=== PATIENT | female | born 1960 | race Caucasian/White ===

== ENCOUNTER 2023-12-29 06:29 | Day surgery (SDC) | payer BC, SELFPAY ==
[2023-12-29 12:15] VITALS: BP 134/80
[2023-12-29 12:24] VITALS: BMI 22.4
[2023-12-29 14:07] VITALS: BP 128/90
[2023-12-29 14:10] VITALS: BP 128/90
[2023-12-29 14:15] VITALS: BP 139/82
[2023-12-29 14:30] VITALS: BP 132/82
[2023-12-29 14:45] VITALS: BP 135/87
== END 2023-12-29 15:12 | disposition home or self-care (01) ==
LOC: SDS 06:29
PROVIDERS: ATTENDING PHYSICIAN Internal Medicine Gastroenterology
DX: K83.8 Other specified diseases of biliary tract (principal); K86.89 Other specified diseases of pancreas; K29.70 Gastritis, unspecified, without bleeding; K31.89 Other diseases of stomach and duodenum
CPT/HCPCS: 43242; 43239; 88305; 88342

== ENCOUNTER 2024-01-14 10:23 | Outpatient (RCR) | payer BC, SELFPAY ==
[2023-12-31] VITALS (9 sets, daily range): BP systolic 98–125; BP diastolic 65–89
[2023-12-31 11:36] LABS: % Basophils 1.4 % (0-2); % Eosinophils 6.4 % (0-6); % Immature Granulocytes 0.2 % (0-0.5); % Lymphocytes 26.8 % (20.5-51.1); % Monocytes 8.6 % (1.7-9.3); % Neutrophils 56.6 % (42.2-75.2); Absolute Basophils 0.1 10^3/uL (0-0.2); Absolute Eosinophils 0.4 10^3/uL (0-0.7); Absolute Lymphocytes 1.6 10^3/uL (1.2-3.4); Absolute Monocytes 0.5 10^3/uL (0.1-0.6); Absolute Neutrophils 3.3 10^3/uL (1.4-6.5); Hematocrit 40.3 % (37.0-47.0); Hemoglobin 13.4 g/dL (12.0-16.0); Mean Corp Hgb Conc. 33.3 g/dL (33.0-37.0); Mean Corpuscular Hgb 30.2 pg (27.0-31.0); Mean Platelet Volume 8.4 fL (7.4-10.4); Platelet Count 308 10^3/uL (130-400); Red Blood Cell Count 4.43 10^6/uL (4.20-5.40); Red Cell Dist. Width 13.6 % (11.5-14.5); White Blood Cell Count 5.9 10^3/uL (4.8-10.8)
[2023-12-31] MEDS: NSS 250 IV (11:41)
[2023-12-31] MEDS: SOLU-CORTEF 100 MG IV (11:42)
[2023-12-31] MEDS: RITUXAN 250 MG IV (11:43)
[2023-12-31 12:24] LABS: ALT (SGPT) 26 U/L (0-35); AST (SGOT) 29 U/L (14-36); Albumin 4.7 g/dl (3.5-5.0); Alkaline Phosphatase 71 U/L (38-126); Blood Urea Nitrogen 13 mg/dl (7-17); Calcium 9.9 mg/dl (8.4-10.2); Carbon Dioxide 27 mmol/L (22-30); Chloride 106 mmol/L (98-107); Glucose 77 mg/dl (70-99); Potassium 4.4 mmol/L (3.5-5.1); Sodium 139 mmol/L (135-145); Total Bilirubin 0.4 mg/dl (0.2-1.3); Total Protein 6.9 g/dl (6.3-8.2); eGFR > 60.00
[2023-12-31 12:26] LABS: C-Reactive Protein < 5.00 mg/L (0.0-10.00)
[2024-01-14] VITALS (9 sets, daily range): BP systolic 126–151; BP diastolic 75–93
[2024-01-14] MEDS: NSS 250 IV (10:55)
[2024-01-14] MEDS: RITUXAN 250 MG IV (10:55)
== END 2024-01-14 14:57 | disposition home or self-care (01) ==
LOC: OID 10:23
PROVIDERS: ATTENDING PHYSICIAN Internal Medicine Rheumatology; FAMILY PHYSICIAN Family Medicine
DX: R06.9 Unspecified abnormalities of breathing (principal); M06.9 Rheumatoid arthritis, unspecified (principal)
CPT/HCPCS: 36415; 80053; 85025; 86140; 96375; 96413; 96415; J9312

== ENCOUNTER 2024-04-14 09:46 | Outpatient (RCR) | payer BC, SELFPAY ==
[2024-03-31] VITALS (11 sets, daily range): BP systolic 110–121; BP diastolic 61–73
[2024-03-31] MEDS: NSS 250 IV (11:14)
[2024-03-31] MEDS: SOLU-CORTEF 100 MG IV (11:14)
[2024-03-31] MEDS: RITUXAN 250 MG IV (11:15)
[2024-04-14] VITALS (9 sets, daily range): BP systolic 115–134; BP diastolic 70–99
[2024-04-14] MEDS: SOLU-CORTEF 100 MG IV (10:24)
[2024-04-14] MEDS: NSS 250 IV (10:24)
[2024-04-14] MEDS: RITUXAN 250 MG IV (10:25)
== END 2024-04-15 09:06 | disposition home or self-care (01) ==
LOC: OID 09:46
PROVIDERS: ATTENDING PHYSICIAN Internal Medicine Rheumatology; PRIMARYCARE PHYSICIAN Family Medicine
DX: M06.9 Rheumatoid arthritis, unspecified (principal)
CPT/HCPCS: 96375; 96413; 96415; J9312

== ENCOUNTER 2024-07-14 09:48 | Outpatient (RCR) | payer BC, SELFPAY ==
[2024-07-14] VITALS (8 sets, daily range): BP systolic 104–131; BP diastolic 60–75; BMI 22.5
[2024-07-14 10:30] LABS: % Basophils 0.9 % (0-2); % Eosinophils 3.4 % (0-6); % Immature Granulocytes 0.1 % (0-0.5); % Lymphocytes 18.4 % (20.5-51.1); % Monocytes 8.4 % (1.7-9.3); % Neutrophils 68.8 % (42.2-75.2); Absolute Basophils 0.1 10^3/uL (0-0.2); Absolute Eosinophils 0.3 10^3/uL (0-0.7); Absolute Lymphocytes 1.4 10^3/uL (1.2-3.4); Absolute Monocytes 0.6 10^3/uL (0.1-0.6); Absolute Neutrophils 5.1 10^3/uL (1.4-6.5); Hematocrit 34.9 % (37.0-47.0); Hemoglobin 11.3 g/dL (12.0-16.0); Mean Corp Hgb Conc. 32.4 g/dL (33.0-37.0); Mean Corpuscular Hgb 30.3 pg (27.0-31.0); Mean Corpuscular Volume 93.6 fL (81.0-99.0); Mean Platelet Volume 8.1 fL (7.4-10.4); Platelet Count 422 10^3/uL (130-400); Red Blood Cell Count 3.73 10^6/uL (4.20-5.40); Red Cell Dist. Width 13.2 % (11.5-14.5); White Blood Cell Count 7.5 10^3/uL (4.8-10.8)
[2024-07-14] MEDS: NSS 250 IV (10:40)
[2024-07-14] MEDS: SOLU-CORTEF 100 MG IV (10:41)
[2024-07-14] MEDS: RITUXAN 250 MG IV (10:41)
[2024-07-14 11:37] LABS: C-Reactive Protein < 5.00 mg/L (0.0-10.00)
[2024-07-14 11:40] LABS: ALT (SGPT) 19 U/L (0-35); AST (SGOT) 22 U/L (14-36); Alkaline Phosphatase 63 U/L (38-126); Blood Urea Nitrogen 17 mg/dl (7-17); Calcium 9.2 mg/dl (8.4-10.2); Carbon Dioxide 25 mmol/L (22-30); Chloride 105 mmol/L (98-107); Estimated Creatinine Clearance 78 ml/min; Glucose 93 mg/dl (70-99); Potassium 3.9 mmol/L (3.5-5.1); Sodium 142 mmol/L (135-145); Total Bilirubin 0.2 mg/dl (0.2-1.3); Total Protein 5.9 g/dl (6.3-8.2); eGFR > 60.00
== END 2024-07-15 08:36 | disposition home or self-care (01) ==
LOC: OID 09:48
PROVIDERS: ATTENDING PHYSICIAN Internal Medicine Rheumatology; PRIMARYCARE PHYSICIAN Family Medicine
DX: M06.9 Rheumatoid arthritis, unspecified (principal)
CPT/HCPCS: 36415; 80053; 85025; 86140; 96361; 96375; 96413; 96415; J9312

== ENCOUNTER 2024-07-28 09:51 | Outpatient (RCR) | payer BC, SELFPAY ==
[2024-07-28] VITALS (10 sets, daily range): BP systolic 91–110; BP diastolic 51–66
[2024-07-28] MEDS: NSS 250 IV (10:15)
[2024-07-28] MEDS: SOLU-CORTEF 100 MG IV (10:23)
[2024-07-28] MEDS: RITUXAN 250 MG IV (10:23)
== END 2024-07-29 10:44 | disposition home or self-care (01) ==
LOC: OID 09:51
PROVIDERS: ATTENDING PHYSICIAN Internal Medicine Rheumatology; PRIMARYCARE PHYSICIAN Family Medicine
DX: M06.9 Rheumatoid arthritis, unspecified (principal)
CPT/HCPCS: 96374; 96375; 96413; 96415; J9312

== ENCOUNTER 2024-11-10 09:57 | Outpatient (RCR) | payer BC, SELFPAY ==
[2024-11-10] VITALS (9 sets, daily range): BP systolic 98–130; BP diastolic 59–79
[2024-11-10] MEDS: NSS 250 IV (10:29)
[2024-11-10] MEDS: SOLU-CORTEF 100 MG IV (10:29)
[2024-11-10] MEDS: RITUXAN 250 MG IV (10:32)
[2024-11-10 10:39] LABS: % Basophils 0.6 % (0-2); % Eosinophils 0.9 % (0-6); % Immature Granulocytes 0.2 % (0-0.5); % Lymphocytes 10.4 % (20.5-51.1); % Monocytes 7.5 % (1.7-9.3); % Neutrophils 80.4 % (42.2-75.2); Absolute Basophils 0.1 10^3/uL (0-0.2); Absolute Eosinophils 0.1 10^3/uL (0-0.7); Absolute Lymphocytes 0.9 10^3/uL (1.2-3.4); Absolute Monocytes 0.7 10^3/uL (0.1-0.6); Absolute Neutrophils 7.1 10^3/uL (1.4-6.5); Mean Corp Hgb Conc. 32.5 g/dL (33.0-37.0); Mean Corpuscular Hgb 29.7 pg (27.0-31.0); Mean Corpuscular Volume 91.3 fL (81.0-99.0); Mean Platelet Volume 8.7 fL (7.4-10.4); Nucleated Red Blood Cells % 0 %; Platelet Count 329 10^3/uL (130-400); Red Blood Cell Count 4.38 10^6/uL (4.20-5.40); Red Cell Dist. Width 12.6 % (11.5-14.5); White Blood Cell Count 8.9 10^3/uL (4.8-10.8)
[2024-11-10 10:56] LABS: ALT (SGPT) 29 U/L (0-35); AST (SGOT) 22 U/L (14-36); Albumin 4.5 g/dl (3.5-5.0); Alkaline Phosphatase 97 U/L (38-126); Blood Urea Nitrogen 19 mg/dl (7-17); Calcium 9.8 mg/dl (8.4-10.2); Carbon Dioxide 28 mmol/L (22-30); Chloride 101 mmol/L (98-107); Glucose 108 mg/dl (70-99); Potassium 3.7 mmol/L (3.5-5.1); Sodium 138 mmol/L (135-145); Total Bilirubin 0.3 mg/dl (0.2-1.3); Total Protein 6.7 g/dl (6.3-8.2); eGFR > 60.00
== END 2024-11-11 09:16 | disposition home or self-care (01) ==
LOC: OID 09:57
PROVIDERS: ATTENDING PHYSICIAN Internal Medicine Rheumatology; PRIMARYCARE PHYSICIAN Family Medicine
DX: M06.9 Rheumatoid arthritis, unspecified (principal)
CPT/HCPCS: 80053; 85025; 86140; 96374; 96375; 96413; 96415; J9312

== ENCOUNTER 2024-11-24 10:13 | Outpatient (RCR) | payer BC, SELFPAY ==
[2024-11-24] VITALS (8 sets, daily range): BP systolic 102–121; BP diastolic 67–83
[2024-11-24 10:52] LABS: % Basophils 0.4 % (0-2); % Eosinophils 2.1 % (0-6); % Immature Granulocytes 0.2 % (0-0.5); % Lymphocytes 6.7 % (20.5-51.1); % Monocytes 4.2 % (1.7-9.3); % Neutrophils 86.4 % (42.2-75.2); Absolute Basophils 0.1 10^3/uL (0-0.2); Absolute Eosinophils 0.2 10^3/uL (0-0.7); Absolute Lymphocytes 0.8 10^3/uL (1.2-3.4); Absolute Monocytes 0.5 10^3/uL (0.1-0.6); Hematocrit 37.1 % (37.0-47.0); Hemoglobin 12.2 g/dL (12.0-16.0); Mean Corp Hgb Conc. 32.9 g/dL (33.0-37.0); Mean Corpuscular Hgb 29.8 pg (27.0-31.0); Mean Corpuscular Volume 90.5 fL (81.0-99.0); Mean Platelet Volume 8.4 fL (7.4-10.4); Platelet Count 248 10^3/uL (130-400); Red Cell Dist. Width 13.2 % (11.5-14.5); White Blood Cell Count 11.6 10^3/uL (4.8-10.8)
[2024-11-24] MEDS: RITUXAN 250 MG IV (10:55)
[2024-11-24] MEDS: NSS 250 IV (10:56)
[2024-11-24] MEDS: SOLU-CORTEF 100 MG IV (10:56)
[2024-11-24 11:30] LABS: ALT (SGPT) 30 U/L (0-35); AST (SGOT) 26 U/L (14-36); Albumin 4.7 g/dl (3.5-5.0); Alkaline Phosphatase 91 U/L (38-126); Blood Urea Nitrogen 17 mg/dl (7-17); Calcium 9.6 mg/dl (8.4-10.2); Carbon Dioxide 25 mmol/L (22-30); Chloride 105 mmol/L (98-107); Glucose 116 mg/dl (70-99); Potassium 4.2 mmol/L (3.5-5.1); Sodium 140 mmol/L (135-145); Total Bilirubin 0.5 mg/dl (0.2-1.3); Total Protein 6.5 g/dl (6.3-8.2); eGFR > 60.00
[2024-11-24 11:32] LABS: C-Reactive Protein < 5.00 mg/L (0.0-10.00)
== END 2024-11-25 09:39 | disposition home or self-care (01) ==
LOC: OID 10:13
PROVIDERS: ATTENDING PHYSICIAN Internal Medicine Rheumatology; PRIMARYCARE PHYSICIAN Family Medicine
DX: M06.9 Rheumatoid arthritis, unspecified (principal)
CPT/HCPCS: 36415; 80053; 85025; 86140; 96375; 96413; 96415; J9312

== ENCOUNTER 2025-04-10 09:55 | Outpatient (RCR) | payer BC, SELFPAY ==
[2025-03-27] VITALS (9 sets, daily range): BP systolic 92–109; BP diastolic 41–67
[2025-03-27 10:45] LABS: Hematocrit 35.9 % (37.0-47.0); Hemoglobin 11.7 g/dL (12.0-16.0); Mean Corp Hgb Conc. 32.6 g/dL (33.0-37.0); Mean Corpuscular Volume 93.0 fL (81.0-99.0); Platelet Count 258 10^3/uL (130-400); Red Cell Dist. Width 13.8 % (11.5-14.5)
[2025-03-27] MEDS: NSS 250 IV (10:45)
[2025-03-27] MEDS: RITUXAN 250 MG IV (10:46)
[2025-03-27] MEDS: SOLU-CORTEF 100 MG IV (10:46)
[2025-03-27 11:35] LABS: ALT (SGPT) 54 U/L (0-35); AST (SGOT) 26 U/L (14-36); Albumin 4.3 g/dl (3.5-5.0); Alkaline Phosphatase 94 U/L (38-126); Blood Urea Nitrogen 14 mg/dl (7-17); Calcium 9.1 mg/dl (8.4-10.2); Carbon Dioxide 28 mmol/L (22-30); Chloride 106 mmol/L (98-107); Glucose 82 mg/dl (70-99); Potassium 4.5 mmol/L (3.5-5.1); Sodium 140 mmol/L (135-145); Total Protein 6.0 g/dl (6.3-8.2); eGFR > 60.00
[2025-03-27 11:38] LABS: C-Reactive Protein < 5.00 mg/L (0.0-10.00)
[2025-04-10] VITALS (9 sets, daily range): BP systolic 82–101; BP diastolic 46–62; BMI 20.6
[2025-04-10 10:57] LABS: Hematocrit 36.5 % (37.0-47.0); Hemoglobin 11.9 g/dL (12.0-16.0); Mean Corp Hgb Conc. 32.6 g/dL (33.0-37.0); Mean Corpuscular Volume 93.6 fL (81.0-99.0); Nucleated Red Blood Cells % 0 %; Platelet Count 237 10^3/uL (130-400); Red Cell Dist. Width 13.9 % (11.5-14.5)
[2025-04-10] MEDS: NSS 250 IV (11:01)
[2025-04-10] MEDS: SOLU-CORTEF 100 MG IV (11:01)
[2025-04-10] MEDS: RITUXAN 250 MG IV (11:02)
[2025-04-10 11:22] LABS: ALT (SGPT) 23 U/L (0-35); AST (SGOT) 21 U/L (14-36); Albumin 4.5 g/dl (3.5-5.0); Alkaline Phosphatase 95 U/L (38-126); Blood Urea Nitrogen 21 mg/dl (7-17); Calcium 9.3 mg/dl (8.4-10.2); Carbon Dioxide 27 mmol/L (22-30); Chloride 104 mmol/L (98-107); Estimated Creatinine Clearance 88 ml/min; Glucose 95 mg/dl (70-99); Potassium 4.6 mmol/L (3.5-5.1); Sodium 137 mmol/L (135-145); Total Protein 6.5 g/dl (6.3-8.2); eGFR > 60.00
[2025-04-10 11:24] LABS: C-Reactive Protein 5.00 mg/L (0.0-10.00)
== END 2025-04-11 09:55 | disposition home or self-care (01) ==
LOC: OID 09:55
PROVIDERS: ATTENDING PHYSICIAN Internal Medicine Rheumatology; PRIMARYCARE PHYSICIAN Family Medicine
DX: M06.9 Rheumatoid arthritis, unspecified (principal); L40.4 Guttate psoriasis; G35 Multiple sclerosis
CPT/HCPCS: 36415; 80053; 85025; 86140; 96361; 96374; 96375; 96413; 96415; J9312

== ENCOUNTER 2025-08-10 10:00 | Outpatient (RCR) | payer BC, SELFPAY ==
[2025-07-27] VITALS (10 sets, daily range): BP systolic 97–120; BP diastolic 53–66
[2025-07-27 10:27] LABS: Hematocrit 37.7 % (37.0-47.0); Hemoglobin 11.8 g/dL (12.0-16.0); Mean Corp Hgb Conc. 31.3 g/dL (33.0-37.0); Mean Corpuscular Volume 97.4 fL (81.0-99.0); Platelet Count 261 10^3/uL (130-400); Red Cell Dist. Width 13.9 % (11.5-14.5)
[2025-07-27] MEDS: SOLU-CORTEF 100 MG IV (10:42)
[2025-07-27] MEDS: NSS 250 IV (10:43)
[2025-07-27] MEDS: RITUXAN 250 MG IV (10:48)
[2025-07-27 11:57] LABS: ALT (SGPT) 22 U/L (0-35); AST (SGOT) 25 U/L (14-36); Albumin 4.6 g/dl (3.5-5.0); Alkaline Phosphatase 82 U/L (38-126); Blood Urea Nitrogen 21 mg/dl (7-17); Calcium 9.4 mg/dl (8.4-10.2); Carbon Dioxide 28 mmol/L (22-30); Chloride 104 mmol/L (98-107); Glucose 85 mg/dl (70-99); Potassium 4.5 mmol/L (3.5-5.1); Sodium 138 mmol/L (135-145); Total Protein 6.8 g/dl (6.3-8.2); eGFR > 60.00
[2025-07-27 12:07] LABS: C-Reactive Protein 7.90 mg/L (0.0-10.00)
[2025-08-10] VITALS (9 sets, daily range): BP systolic 129–142; BP diastolic 70–78
[2025-08-10] MEDS: NSS 250 IV (10:20)
[2025-08-10 10:27] LABS: Hematocrit 36.6 % (37.0-47.0); Hemoglobin 11.8 g/dL (12.0-16.0); Mean Corp Hgb Conc. 32.2 g/dL (33.0-37.0); Mean Corpuscular Volume 96.8 fL (81.0-99.0); Platelet Count 232 10^3/uL (130-400); Red Cell Dist. Width 13.8 % (11.5-14.5)
[2025-08-10] MEDS: SOLU-CORTEF 100 MG IV (10:35)
[2025-08-10] MEDS: RITUXAN 250 MG IV (10:54)
[2025-08-10 11:29] LABS: ALT (SGPT) 20 U/L (0-35); AST (SGOT) 25 U/L (14-36); Albumin 4.4 g/dl (3.5-5.0); Alkaline Phosphatase 96 U/L (38-126); Calcium 9.1 mg/dl (8.4-10.2); Carbon Dioxide 27 mmol/L (22-30); Chloride 99 mmol/L (98-107); Glucose 83 mg/dl (70-99); Potassium 4.3 mmol/L (3.5-5.1); Sodium 133 mmol/L (135-145); Total Protein 6.5 g/dl (6.3-8.2); eGFR > 60.00
[2025-08-10 11:31] LABS: C-Reactive Protein 12.90 mg/L (0.0-10.00)
[2025-08-10 11:42] LABS: Blood Urea Nitrogen 27 mg/dl (7-17)
== END 2025-08-23 23:59 | disposition home or self-care (01) ==
LOC: OID 10:00
PROVIDERS: ATTENDING PHYSICIAN Internal Medicine Rheumatology; PRIMARYCARE PHYSICIAN Family Medicine
DX: M06.9 Rheumatoid arthritis, unspecified (principal); L40.4 Guttate psoriasis; G35.B0 Primary progressive multiple sclerosis, unspecified
CPT/HCPCS: 36415; 80053; 85025; 86140; 96374; 96375; 96413; 96415; J9312

== ENCOUNTER → 2025-08-11 17:17 | Outpatient (REF) | payer BC, SELFPAY | LOC: MRI 17:17 | PROVIDERS: ATTENDING PHYSICIAN Psychiatry & Neurology Psychiatry; FAMILY PHYSICIAN Family Medicine | DX: G37.9 Demyelinating disease of central nervous system, unspecified (principal) | CPT/HCPCS: 70553; 72156; 72157; A9575 ==